=== PATIENT | female | born 1940 | race African-American/Black ===

== ENCOUNTER 2017-04-03 19:19 | Inpatient (IN) | payer MEDICARE, MEDICAID ==
[~2017-04-03] VITALS: Ht 154.9 cm; Wt 55.3 kg
[~2017-04-03 19:19] MED LIST: ACET-2178 PO; AMLO5TAB4 PO; ASPI-1159 PO; COMBIVENT; DIGO125T82 PO; ELOQUIS PO; FOLI-43 PO; LISI-604 PO; METO25TA6 PO; OMEP20CA10 PO; TRAM50TA3 PO
[2017-04-03] MEDS ORDERED: SODIUM CHLORIDE 0.9% 500 ML IV ONE (19:45)
[2017-04-03 20:10] LABS: BASOPHILS % 1.1 % (0.0-2.0); EOSINOPHILS % 1.8 % (0.0-5.0); HEMATOCRIT. 40.3 % (36.0-48.0); HEMOGLOBIN. 13.7 g/dL (12.0-16.0); LYMPHOCYTES % 24.5 % (20.0-50.0); MEAN CORPUSCULAR HEMOGLOBIN 33.3 pg (28.0-32.0); MEAN CORPUSCULAR VOLUME 98.1 fL (81.0-99.0); MEAN PLATELET VOLUME 7.2 fl (7.4-10.4); MONOCYTES % 12.6 % (2.0-8.0); PLATELET 252 x1000/uL (130-400); RED BLOOD CELL COUNT 4.11 mill/uL (4.2-5.4); RED CELL DISTRIBUTION WIDTH 13.5 % (11.6-14.6)
[2017-04-03 20:17] LABS: INR 1.2; PARTIAL THROMBOPLASTIN TIME 30.1 sec (24.0-34.0)
[2017-04-03 20:20] LABS: CARBON DIOXIDE 29 mEq/L (21-32); CHLORIDE 98 mEq/L (98-107)
[2017-04-03 20:27] LABS: TROPONIN I 0.18 ng/mL (0.00-0.04)
[2017-04-03] MEDS ORDERED: DILTIAZEM HCL 5MG/ML 5ML VIAL IV ONE (21:00)
[2017-04-03] MEDS ORDERED: DIGOXIN 500MCG/2ML AMP IV ONE (21:45)
[2017-04-03] MEDS ORDERED: GUAIFENESIN 200MG/10ML SUGAR FREE UDC PO PRN (22:30)
[2017-04-03] MEDS ORDERED: DIPHENHYDRAMINE 50MG/ML VIAL IV PRN (22:30)
[2017-04-03] MEDS ORDERED: CLONIDINE 0.1MG TABLET PO PRN (22:30)
[2017-04-03] MEDS ORDERED: IPRATROPIUM/ALBUTEROL 0.5-3(2.5)MG/3ML NEB INH PRN (22:30)
[2017-04-03] MEDS ORDERED: ACETAMINOPHEN 325MG TABLET PO PRN (22:30)
[2017-04-03] MEDS ORDERED: DOCUSATE SODIUM 100MG CAPSULE PO PRN (22:30)
[2017-04-03] MEDS ORDERED: ONDANSETRON HCL 4MG/2ML VIAL IV PRN (22:30)
[2017-04-03] MEDS ORDERED: ZOLPIDEM TARTRATE 5MG TABLET PO PRN (22:30)
[2017-04-03] MEDS ORDERED: LORAZEPAM 2MG/ML CPJ IV PRN (22:30)
[2017-04-03] MEDS ORDERED: NA PHOS,M-B/NA PHOS,DI-BA ENEMA 118ML PR PRN (22:30)
[2017-04-03] MEDS ORDERED: MAGNESIUM/ALUMINUM HYDROXIDE/SIMETHICONE 30ML UDC PO PRN (22:30)
[2017-04-04] MEDS: DILTIAZEM HCL 60MG TABLET PO SCH ×4 (01:22→17:26)
[2017-04-04] MEDS: TRAMADOL 50MG TABLET PO PRN ×2 (06:05→21:15)
[2017-04-04] MEDS: APIXABAN 2.5 MG TABLET PO SCH ×2 (06:05→17:25)
[2017-04-04 07:02] LABS: CREATINE KINASE MB FRACTION 1.6 ng/mL (0.5-3.6); TROPONIN I 0.15 ng/mL (0.00-0.04)
[2017-04-04 07:45] LABS: CLARITY URINE CLEAR (CLEAR); COLOR URINE YELLOW (YELLOW); KETONES URINE NEGATIVE (NEGATIVE); LEUKOCYTE ESTERASE URINE 1+ (NEGATIVE); NITRITE URINE NEGATIVE (NEGATIVE); OCCULT BLOOD URINE NEGATIVE (NEGATIVE); PROTEIN URINE NEGATIVE (NEGATIVE); SPECIFIC GRAVITY URINE 1.015 (1.005-1.030); UROBILINOGEN URINE 0.2 E.U./dL (0.2-1.0)
[2017-04-04 08:48] LABS: *AMPHETAMINES SCREEN URINE NEGATIVE (NEGATIVE); *BARBITURATES SCREEN URINE NEGATIVE (NEGATIVE); *BENZODIAZEPINES SCREEN URINE NEGATIVE (NEGATIVE); *COCAINE SCREEN URINE NEGATIVE (NEGATIVE); CANNABINOID URINE SCREEN NEGATIVE (NEGATIVE); METHADONE URINE SCREEN NEGATIVE (NEGATIVE); OPIATES URINE SCREEN NEGATIVE (NEGATIVE); PHENCYCLIDINE URINE SCREEN NEGATIVE (NEGATIVE)
[2017-04-04] MEDS: LISINOPRIL 20MG TABLET PO SCH ×2 (09:19→21:09)
[2017-04-04] MEDS: ASPIRIN 325MG EC TABLET PO SCH (09:19)
[2017-04-04] MEDS: PANTOPRAZOLE SODIUM 40 MG/VIAL IV SCH (09:19)
[2017-04-04] MEDS: ZINC SULFATE 220 MG ( 50 ) CAPSULE PO SCH (09:19)
[2017-04-04] MEDS ORDERED: MAGNESIUM 2 G PREMIX 50 ML IV SCH (14:00)
[2017-04-04 14:44] LABS: CREATINE KINASE MB FRACTION 1.7 ng/mL (0.5-3.6); TROPONIN I 0.15 ng/mL (0.00-0.04)
[2017-04-04] MEDS ORDERED: DIGOXIN 125MCG TABLET PO SCH (18:00)
[2017-04-05] MEDS: DILTIAZEM HCL 60MG TABLET PO SCH ×2 (00:38→06:18)
[2017-04-05] MEDS: APIXABAN 2.5 MG TABLET PO SCH ×2 (06:18→17:36)
[2017-04-05 07:48] LABS: EOSINOPHILS % 1.7 % (0.0-5.0); HEMATOCRIT. 36.2 % (36.0-48.0); HEMOGLOBIN. 12.5 g/dL (12.0-16.0); LYMPHOCYTES % 27.3 % (20.0-50.0); MEAN CORPUSCULAR HEMOGLOBIN 33.9 pg (28.0-32.0); MEAN CORPUSCULAR VOLUME 98.7 fL (81.0-99.0); MEAN PLATELET VOLUME 7.6 fl (7.4-10.4); MONOCYTES % 12.3 % (2.0-8.0); NEUTROPHILS % 57.7 % (40.0-76.0); PLATELET 220 x1000/uL (130-400); RED BLOOD CELL COUNT 3.67 mill/uL (4.2-5.4); RED CELL DISTRIBUTION WIDTH 13.3 % (11.6-14.6)
[2017-04-05 08:18] LABS: CARBON DIOXIDE 28 mEq/L (21-32); CHLORIDE 97 mEq/L (98-107); HDL CHOLESTEROL 46 mg/dL (40-59); LDL CHOLESTEROL 73 mg/dL (5-100); T4 FREE 2.14 ng/dL (0.76-1.46); TROPONIN I 0.14 ng/mL (0.00-0.04)
[2017-04-05] MEDS: ZINC SULFATE 220 MG ( 50 ) CAPSULE PO SCH (08:33)
[2017-04-05] MEDS: ASPIRIN 325MG EC TABLET PO SCH (08:34)
[2017-04-05] MEDS: LISINOPRIL 20MG TABLET PO SCH ×2 (08:34→22:07)
[2017-04-05] MEDS: PANTOPRAZOLE SODIUM 40 MG/VIAL IV SCH (08:34)
[2017-04-05] MEDS ORDERED: DOCUSATE SODIUM 250MG CAPSULE PO PRN (11:30)
[2017-04-05] MEDS ORDERED: MAGNESIUM 1 G PREMIX 100 ML IV NR (14:00)
[2017-04-05] MEDS ORDERED: DILTIAZEM HCL 60MG TABLET PO SCH (14:00)
[2017-04-05] MEDS: TRAMADOL 50MG TABLET PO PRN (17:37)
[2017-04-06 06:28] LABS: CARBON DIOXIDE 31 mEq/L (21-32); CHLORIDE 98 mEq/L (98-107)
[2017-04-06] MEDS: APIXABAN 2.5 MG TABLET PO SCH ×2 (06:46→17:03)
[2017-04-06 07:05] LABS: BASOPHILS % 0.8 % (0.0-2.0); HEMOGLOBIN. 12.1 g/dL (12.0-16.0); LYMPHOCYTES % 25.7 % (20.0-50.0); MEAN CORPUSCULAR HEMOGLOBIN 33.2 pg (28.0-32.0); MEAN PLATELET VOLUME 7.8 fl (7.4-10.4); MONOCYTES % 11.9 % (2.0-8.0); NEUTROPHILS % 59.6 % (40.0-76.0); PLATELET 221 x1000/uL (130-400); RED BLOOD CELL COUNT 3.64 mill/uL (4.2-5.4); RED CELL DISTRIBUTION WIDTH 13.3 % (11.6-14.6)
[2017-04-06] MEDS: LISINOPRIL 20MG TABLET PO SCH ×2 (07:39→22:19)
[2017-04-06] MEDS: ZINC SULFATE 220 MG ( 50 ) CAPSULE PO SCH (08:40)
[2017-04-06] MEDS: FAMOTIDINE 20MG/2ML VIAL IV SCH (08:40)
[2017-04-06] MEDS ORDERED: ASPIRIN 325MG EC TABLET PO SCH (09:00)
[2017-04-06] MEDS ORDERED: HYDRALAZINE 20MG/ML VIAL IV PRN (11:30)
[2017-04-06 14:25] LABS: CLARITY URINE CLEAR (CLEAR); COLOR URINE YELLOW (YELLOW); KETONES URINE NEGATIVE (NEGATIVE); LEUKOCYTE ESTERASE URINE TRACE (NEGATIVE); NITRITE URINE NEGATIVE (NEGATIVE); OCCULT BLOOD URINE NEGATIVE (NEGATIVE); PROTEIN URINE NEGATIVE (NEGATIVE); SPECIFIC GRAVITY URINE 1.008 (1.005-1.030); UROBILINOGEN URINE 0.2 E.U./dL (0.2-1.0)
[2017-04-06] MEDS ORDERED: MAGNESIUM 1 G PREMIX 100 ML IV NR ×2 (18:00→20:00)
[2017-04-06] MEDS: HYDRALAZINE HCL 25MG TABLET PO SCH (21:00)
[2017-04-06] MEDS: TRAMADOL 50MG TABLET PO PRN (22:30)
[2017-04-06] MEDS: NITROGLYCERIN 0.4MG TABLET SL SL PRN (23:52)
[2017-04-07] MEDS: NITROGLYCERIN 0.4MG TABLET SL SL PRN (00:02)
[2017-04-07] MEDS: APIXABAN 2.5 MG TABLET PO SCH (07:20)
[2017-04-07 07:33] LABS: CARBON DIOXIDE 31 mEq/L (21-32); CHLORIDE 98 mEq/L (98-107)
[2017-04-07] MEDS ORDERED: ASPIRIN 81MG TABLET PO SCH (07:54)
[2017-04-07] MEDS: LISINOPRIL 20MG TABLET PO SCH (08:41)
[2017-04-07] MEDS: FAMOTIDINE 20MG/2ML VIAL IV SCH (08:41)
[2017-04-07] MEDS: ZINC SULFATE 220 MG ( 50 ) CAPSULE PO SCH (08:41)
[2017-04-07] MEDS: HYDRALAZINE HCL 25MG TABLET PO SCH (08:42)
[2017-04-07] MEDS ORDERED: POTASSIUM CHLORIDE 20MEQ TABLET SR PO SCH (11:30)
[2017-04-07] MEDS ORDERED: MAGNESIUM OXIDE 400MG TABLET PO SCH (11:30)
[2017-04-07 13:35] VITALS: BP 130/81
== END 2017-04-07 14:55 | disposition home health service (06) | DRG 190 ==
LOC: ER 19:19 → 6WST 22:04 → EDBEDREQ 22:07 → EDBEDREQTM 22:07 → ENRESERV 23:03
PROVIDERS: ADMIT Internal Medicine; ATTEND Internal Medicine
DX: I21.4 Non-ST elevation (NSTEMI) myocardial infarction (principal); I47.2 Ventricular tachycardia; E44.0 Moderate protein-calorie malnutrition; I48.91 Unspecified atrial fibrillation; E87.1 Hypo-osmolality and hyponatremia; J44.9 Chronic obstructive pulmonary disease, unspecified; I11.9 Hypertensive heart disease without heart failure; I69.351 Hemiplegia and hemiparesis following cerebral infarction affecting right dominant side; I65.29 Occlusion and stenosis of unspecified carotid artery; E78.5 Hyperlipidemia, unspecified; I34.0 Nonrheumatic mitral (valve) insufficiency; K21.9 Gastro-esophageal reflux disease without esophagitis; F10.10 Alcohol abuse, uncomplicated; K59.00 Constipation, unspecified; F17.210 Nicotine dependence, cigarettes, uncomplicated; Z79.01 Long term (current) use of anticoagulants; Z88.2 Allergy status to sulfonamides; Z88.0 Allergy status to penicillin; I69.320 Aphasia following cerebral infarction; Z79.82 Long term (current) use of aspirin; Z79.899 Other long term (current) drug therapy; Z68.23 Body mass index [BMI] 23.0-23.9, adult
CPT/HCPCS: 36415; 70450; 70551; 71010; 80048; 80053; 80061; 80162; 80305; 81001; 82550; 82553; 83735; 83880; 84439; 84443; 84484; 85025; 85610; 85730; 87086; 93005; 93970; 96361; 96374; 96375; 97116; 97162; 97166; 99291; C1893; C9113; G0482; J1160; J3475; J3490; J7040; J7050

== ENCOUNTER 2018-09-22 15:55 | Inpatient (IN) | payer MEDICARE, MEDICAID ==
[~2018-09-22] VITALS: Ht 162.6 cm; Wt 57.3 kg
[~2018-09-22 15:55] MED LIST changes: -ACET-2178 PO; -AMLO5TAB4 PO; +APIX2.5T PO; -COMBIVENT; -DIGO125T82 PO; -ELOQUIS PO; -FOLI-43 PO
[2018-09-22] MEDS ORDERED: SODIUM CHLORIDE 0.9% 1,000 ML IV ONE (16:22)
[2018-09-22 18:05] LABS: CHLORIDE 104 mEq/L (98-107)
[2018-09-22 18:07] LABS: BASOPHILS % 1.1 % (0.0-2.0); EOSINOPHILS % 1.3 % (0.0-5.0); HEMATOCRIT. 36.6 % (36.0-48.0); HEMOGLOBIN. 12.2 g/dL (12.0-16.0); LYMPHOCYTES % 15.7 % (20.0-50.0); MEAN CORPUSCULAR HEMOGLOBIN 32.9 pg (28.0-32.0); MEAN CORPUSCULAR VOLUME 98.5 fL (81.0-99.0); MONOCYTES % 9.4 % (2.0-8.0); NEUTROPHILS % 72.5 % (40.0-76.0); PLATELET 335 x1000/uL (130-400); RED BLOOD CELL COUNT 3.72 mill/uL (4.2-5.4); RED CELL DISTRIBUTION WIDTH 14.8 % (11.6-14.6)
[2018-09-22] MEDS ORDERED: ASPIRIN 325MG EC TABLET PO ONE (18:30)
[2018-09-22] MEDS ORDERED: IPRATROPIUM/ALBUTEROL 0.5-3(2.5)MG/3ML NEB INH PRN (19:15)
[2018-09-22] MEDS ORDERED: ONDANSETRON HCL 4MG/2ML INJ IV PRN (19:15)
[2018-09-22] MEDS ORDERED: NA PHOS,M-B/NA PHOS,DI-BA ENEMA 118ML PR PRN (19:15)
[2018-09-22] MEDS ORDERED: NITROGLYCERIN 0.4MG TABLET SL SL PRN (19:15)
[2018-09-22] MEDS ORDERED: MAGNESIUM/ALUMINUM HYDROXIDE/SIMETHICONE 30ML UDC PO PRN (19:15)
[2018-09-22] MEDS ORDERED: DOCUSATE SODIUM 100MG CAPSULE PO PRN (19:15)
[2018-09-22] MEDS ORDERED: ZOLPIDEM TARTRATE 5MG TABLET PO PRN (19:15)
[2018-09-22] MEDS ORDERED: LORAZEPAM 1MG TABLET PO PRN (19:15)
[2018-09-22] MEDS ORDERED: ACETAMINOPHEN 325MG TABLET PO PRN (19:15)
[2018-09-22] MEDS ORDERED: TRAMADOL 50MG TABLET PO PRN (19:15)
[2018-09-22 20:37] LABS: CLARITY URINE CLEAR (CLEAR); COLOR URINE YELLOW (YELLOW); KETONES URINE NEGATIVE (NEGATIVE); LEUKOCYTE ESTERASE URINE NEGATIVE (NEGATIVE); NITRITE URINE NEGATIVE (NEGATIVE); OCCULT BLOOD URINE NEGATIVE (NEGATIVE); PH URINE 6.5 (4.5-8.0); PROTEIN URINE NEGATIVE (NEGATIVE); SPECIFIC GRAVITY URINE 1.009 (1.005-1.030); UROBILINOGEN URINE 0.2 E.U./dL (0.2-1.0)
[2018-09-22 21:06] LABS: METHADONE URINE SCREEN NEGATIVE (NEGATIVE); OPIATES URINE SCREEN NEGATIVE (NEGATIVE); PHENCYCLIDINE URINE SCREEN NEGATIVE (NEGATIVE)
[2018-09-22 21:07] LABS: *AMPHETAMINES SCREEN URINE NEGATIVE (NEGATIVE); *BARBITURATES SCREEN URINE NEGATIVE (NEGATIVE); *BENZODIAZEPINES SCREEN URINE NEGATIVE (NEGATIVE); *COCAINE SCREEN URINE NEGATIVE (NEGATIVE); CANNABINOID URINE SCREEN NEGATIVE (NEGATIVE)
[2018-09-22 22:43] VITALS: BP 150/74
[2018-09-22 22:59] VITALS: BP 150/74
[2018-09-23] VITALS (8 sets, daily range): BP systolic 115–174; BP diastolic 75–98
[2018-09-23 00:30] LABS: CREATINE KINASE MB FRACTION 1.9 ng/mL (0.5-3.6)
[2018-09-23] MEDS: METOPROLOL TARTRATE 25MG TABLET PO SCH ×3 (01:01→21:06)
[2018-09-23] MEDS: CLONIDINE 0.1MG TABLET PO PRN ×2 (01:01→13:38)
[2018-09-23] MEDS ORDERED: MVI, ADULT NO.1 10 ML, FOLIC ACID 1 MG, THIAMINE HCL 100 MG in SODIUM CHLORIDE 0.9% 1,0... IV NR ×4 (02:00)
[2018-09-23] MEDS: APIXABAN 2.5 MG TABLET PO SCH ×2 (05:26→17:44)
[2018-09-23] MEDS: GUAIFENESIN 200MG/10ML SUGAR FREE UDC PO PRN (08:39)
[2018-09-23] MEDS: FAMOTIDINE 20MG TABLET PO SCH (08:44)
[2018-09-23] MEDS: ASPIRIN 325MG EC TABLET PO SCH (08:45)
[2018-09-23 09:19] LABS: CREATINE KINASE MB FRACTION 1.5 ng/mL (0.5-3.6)
[2018-09-23 10:26] LABS: CHLORIDE 106 mEq/L (98-107)
[2018-09-24] VITALS (7 sets, daily range): BP systolic 118–173; BP diastolic 80–98
[2018-09-24] MEDS: GUAIFENESIN 200MG/10ML SUGAR FREE UDC PO PRN ×2 (02:12→20:18)
[2018-09-24] MEDS: CLONIDINE 0.1MG TABLET PO PRN (05:29)
[2018-09-24] MEDS: APIXABAN 2.5 MG TABLET PO SCH ×2 (05:29→17:22)
[2018-09-24 07:46] LABS: BASOPHILS % 1.2 % (0.0-2.0); EOSINOPHILS % 2.6 % (0.0-5.0); HEMATOCRIT. 33.7 % (36.0-48.0); HEMOGLOBIN. 11.3 g/dL (12.0-16.0); LYMPHOCYTES % 17.2 % (20.0-50.0); MEAN CORPUSCULAR HEMOGLOBIN 32.9 pg (28.0-32.0); MEAN CORPUSCULAR VOLUME 97.9 fL (81.0-99.0); MEAN PLATELET VOLUME 8.5 fl (7.4-10.4); MONOCYTES % 8.3 % (2.0-8.0); NEUTROPHILS % 70.7 % (40.0-76.0); PLATELET 280 x1000/uL (130-400); RED BLOOD CELL COUNT 3.44 mill/uL (4.2-5.4); RED CELL DISTRIBUTION WIDTH 15.2 % (11.6-14.6)
[2018-09-24 08:06] LABS: CHLORIDE 103 mEq/L (98-107)
[2018-09-24 08:20] LABS: CREATINE KINASE 91 IU/L (26-192)
[2018-09-24 08:21] LABS: CREATINE KINASE MB FRACTION 2.4 ng/mL (0.5-3.6); HDL CHOLESTEROL 48 mg/dL (40-59); LDL CHOLESTEROL 92 mg/dL (5-100)
[2018-09-24] MEDS: ASPIRIN 325MG EC TABLET PO SCH (09:00)
[2018-09-24] MEDS: METOPROLOL TARTRATE 25MG TABLET PO SCH ×2 (09:00→20:18)
[2018-09-24] MEDS: FAMOTIDINE 20MG TABLET PO SCH (09:00)
[2018-09-24] MEDS ORDERED: MAGNESIUM 4 G PREMIX 100 ML IV NR (14:30)
[2018-09-25] MEDS: CLONIDINE 0.1MG TABLET PO PRN (00:07)
[2018-09-25 00:41] VITALS: BP 169/73
[2018-09-25 04:00] VITALS: BP 161/95
[2018-09-25 05:00] VITALS: BP 158/65
[2018-09-25] MEDS: APIXABAN 2.5 MG TABLET PO SCH (06:16)
[2018-09-25 07:24] LABS: BASOPHILS % 1.5 % (0.0-2.0); EOSINOPHILS % 3.1 % (0.0-5.0); HEMATOCRIT. 34.1 % (36.0-48.0); HEMOGLOBIN. 11.4 g/dL (12.0-16.0); LYMPHOCYTES % 22.3 % (20.0-50.0); MEAN CORPUSCULAR HEMOGLOBIN 32.9 pg (28.0-32.0); MEAN CORPUSCULAR VOLUME 98.6 fL (81.0-99.0); MEAN PLATELET VOLUME 8.9 fl (7.4-10.4); MONOCYTES % 9.5 % (2.0-8.0); NEUTROPHILS % 63.6 % (40.0-76.0); PLATELET 261 x1000/uL (130-400); RED BLOOD CELL COUNT 3.46 mill/uL (4.2-5.4)
[2018-09-25 07:53] LABS: CHLORIDE 100 mEq/L (98-107)
[2018-09-25 08:00] VITALS: BP 145/95
[2018-09-25] MEDS: FAMOTIDINE 20MG TABLET PO SCH (08:40)
[2018-09-25] MEDS: METOPROLOL TARTRATE 25MG TABLET PO SCH (08:40)
[2018-09-25] MEDS: ASPIRIN 325MG EC TABLET PO SCH (08:40)
[2018-09-25] MEDS: GUAIFENESIN 200MG/10ML SUGAR FREE UDC PO PRN (08:40)
[2018-09-25 12:00] VITALS: BP 116/65
[2018-09-25 16:00] VITALS: BP 111/56
== END 2018-09-25 18:00 | disposition home health service (06) | DRG 190 ==
LOC: ER 15:55 → 6WST 18:32 → ENRESERV 19:41 → 6WST 22:10
PROVIDERS: ADMIT Internal Medicine; ATTEND Internal Medicine
DX: I21.4 Non-ST elevation (NSTEMI) myocardial infarction (principal); E44.0 Moderate protein-calorie malnutrition; E83.51 Hypocalcemia; E83.42 Hypomagnesemia; I48.2 Chronic atrial fibrillation; I50.9 Heart failure, unspecified; I11.0 Hypertensive heart disease with heart failure; I65.29 Occlusion and stenosis of unspecified carotid artery; F10.10 Alcohol abuse, uncomplicated; I24.9 Acute ischemic heart disease, unspecified; J98.11 Atelectasis; F17.210 Nicotine dependence, cigarettes, uncomplicated; J44.9 Chronic obstructive pulmonary disease, unspecified; K57.90 Diverticulosis of intestine, part unspecified, without perforation or abscess without bleeding; R74.8 Abnormal levels of other serum enzymes; Y90.2 Blood alcohol level of 40-59 mg/100 ml; K21.9 Gastro-esophageal reflux disease without esophagitis; Z86.73 Personal history of transient ischemic attack (TIA), and cerebral infarction without residual deficits; Z68.21 Body mass index [BMI] 21.0-21.9, adult; Z88.0 Allergy status to penicillin; Z88.2 Allergy status to sulfonamides; Z71.6 Tobacco abuse counseling; Z71.41 Alcohol abuse counseling and surveillance of alcoholic; Z79.84 Long term (current) use of oral hypoglycemic drugs; Z79.899 Other long term (current) drug therapy
CPT/HCPCS: 36415; 71045; 80061; 80305; 82550; 82553; 82962; 83036; 83605; 83735; 83880; 84443; 84484; 87804; 93005; 93970; 96360; 97116; 97162; 97166; 97530; 99291; G0482; J3411; J3475; J3490; J7030; J7050

== ENCOUNTER 2018-12-21 00:51 | Inpatient (IN) | payer MEDICARE, MEDICAID ==
[~2018-12-21] VITALS: Ht 152.4 cm; Wt 55.8 kg
[~2018-12-21 00:51] MED LIST changes: -TRAM50TA3 PO
[2018-12-21] MEDS ORDERED: MORPHINE SULFATE 4 MG/ML CPJ (NOT FOR IM USE) IV STA (01:34)
[2018-12-21] MEDS ORDERED: ONDANSETRON HCL 4MG/2ML INJ IV STA (01:34)
[2018-12-21 02:13] LABS: BASOPHILS % 0.5 % (0.0-2.0); EOSINOPHILS % 0.4 % (0.0-5.0); HEMATOCRIT. 40.4 % (36.0-48.0); HEMOGLOBIN. 13.6 g/dL (12.0-16.0); LYMPHOCYTES % 7.1 % (20.0-50.0); MEAN CORPUSCULAR HEMOGLOBIN 31.4 pg (28.0-32.0); MEAN CORPUSCULAR VOLUME 93.5 fL (81.0-99.0); MEAN PLATELET VOLUME 7.4 fl (7.4-10.4); MONOCYTES % 9.1 % (2.0-8.0); NEUTROPHILS % 82.9 % (40.0-76.0); PLATELET 361 x1000/uL (130-400); RED BLOOD CELL COUNT 4.32 mill/uL (4.2-5.4); RED CELL DISTRIBUTION WIDTH 14.6 % (11.6-14.6)
[2018-12-21 02:14] LABS: CHLORIDE 102 mEq/L (98-107)
[2018-12-21 02:22] LABS: INR 1.2; PROTHROMBIN TIME 11.8 sec (9.1-11.1)
[2018-12-21 03:31] LABS: CLARITY URINE CLEAR (CLEAR); COLOR URINE YELLOW (YELLOW); KETONES URINE NEGATIVE (NEGATIVE); LEUKOCYTE ESTERASE URINE NEGATIVE (NEGATIVE); NITRITE URINE NEGATIVE (NEGATIVE); OCCULT BLOOD URINE NEGATIVE (NEGATIVE); PROTEIN URINE NEGATIVE (NEGATIVE); SPECIFIC GRAVITY URINE 1.027 (1.005-1.030)
[2018-12-21] MEDS ORDERED: IOHEXOL-300 100 ML BOTTLE ONE (04:03)
[2018-12-21] MEDS ORDERED: LEVOFLOXACIN 750MG PREMIX 150 ML IV ONE (04:15)
[2018-12-21] MEDS ORDERED: METRONIDAZOLE 500 MG PREMIX 100 ML IV ONE (04:15)
[2018-12-21 06:30] VITALS: BP 130/63
[2018-12-21] MEDS ORDERED: ACETAMINOPHEN 325MG TABLET PO PRN (06:30)
[2018-12-21] MEDS ORDERED: IPRATROPIUM/ALBUTEROL 0.5-3(2.5)MG/3ML NEB INH PRN (06:30)
[2018-12-21] MEDS ORDERED: LORAZEPAM 2MG/ML CPJ IV PRN (06:30)
[2018-12-21] MEDS ORDERED: GUAIFENESIN 200MG/10ML SUGAR FREE UDC PO PRN (06:30)
[2018-12-21] MEDS ORDERED: HYDRALAZINE 20MG/ML VIAL IV PRN (06:30)
[2018-12-21] MEDS ORDERED: DIPHENHYDRAMINE 50MG/ML VIAL IV PRN (06:30)
[2018-12-21] MEDS ORDERED: MAGNESIUM/ALUMINUM HYDROXIDE/SIMETHICONE 30ML UDC PO PRN (06:30)
[2018-12-21] MEDS ORDERED: CLONIDINE 0.1MG TABLET PO PRN (06:30)
[2018-12-21] MEDS ORDERED: ONDANSETRON HCL 4MG/2ML INJ IV PRN (06:30)
[2018-12-21] MEDS ORDERED: HYDROMORPHONE HCL/PF 2MG/ML CPJ IV PRN (06:30)
[2018-12-21] MEDS ORDERED: ENOXAPARIN 40MG/0.4ML SYR SUBCUT SCH (06:30)
[2018-12-21] MEDS ORDERED: DOCUSATE SODIUM 100MG CAPSULE PO PRN (06:30)
[2018-12-21 08:00] VITALS: BP 117/65
[2018-12-21 08:49] VITALS: BP 117/65
[2018-12-21] MEDS ORDERED: ASPIRIN 81MG EC TABLET PO SCH (09:00)
[2018-12-21] MEDS: HYDROCODONE/ACETAMINOPHEN 10/325MG TABLET PO PRN ×2 (09:44→21:49)
[2018-12-21] MEDS: APIXABAN 2.5 MG TABLET PO SCH ×2 (11:15→18:04)
[2018-12-21 12:51] VITALS: BP 113/65
[2018-12-21] MEDS: METRONIDAZOLE 500 MG PREMIX 100 ML IV SCH ×2 (13:31→21:38)
[2018-12-21] MEDS: SODIUM CHLORIDE 0.45% 1,000 ML IV SCH ×2 (13:31→21:38)
[2018-12-21] MEDS: SODIUM CHLORIDE 0.9% INJ 3ML FLUSH IVF SCH ×2 (13:32→21:38)
[2018-12-21] MEDS ORDERED: ALBUMIN HUMAN 25GM/500ML (5%) IV PRN (16:00)
[2018-12-21 16:25] LABS: CREATINE KINASE MB FRACTION 1.2 ng/mL (0.5-3.6)
[2018-12-21 16:35] VITALS: BP 107/52
[2018-12-21] MEDS: PANTOPRAZOLE SODIUM 40 MG/VIAL IV SCH (18:04)
[2018-12-21] MEDS ORDERED: IPRA4AER INH (18:44)
[2018-12-21 20:00] VITALS: BP 124/71
[2018-12-21 23:27] LABS: CREATINE KINASE MB FRACTION 1.6 ng/mL (0.5-3.6)
[2018-12-22] VITALS: BP 114/70
[2018-12-22 04:00] VITALS: BP 133/63
[2018-12-22] MEDS: SODIUM CHLORIDE 0.9% INJ 3ML FLUSH IVF SCH ×3 (05:22→21:43)
[2018-12-22] MEDS: METRONIDAZOLE 500 MG PREMIX 100 ML IV SCH ×3 (05:22→21:43)
[2018-12-22] MEDS: LEVOFLOXACIN 250MG PREMIX 50 ML IV SCH (05:22)
[2018-12-22 07:35] VITALS: BP 123/82
[2018-12-22] MEDS: APIXABAN 2.5 MG TABLET PO SCH ×2 (09:00→18:24)
[2018-12-22] MEDS: PANTOPRAZOLE SODIUM 40 MG/VIAL IV SCH (09:00)
[2018-12-22] MEDS: SODIUM CHLORIDE 0.45% 1,000 ML IV SCH ×2 (09:00→21:43)
[2018-12-22 09:01] LABS: EOSINOPHILS % 2.6 % (0.0-5.0); HEMATOCRIT. 35.1 % (36.0-48.0); HEMOGLOBIN. 11.7 g/dL (12.0-16.0); LYMPHOCYTES % 23.1 % (20.0-50.0); MEAN CORPUSCULAR HEMOGLOBIN 31.4 pg (28.0-32.0); MEAN CORPUSCULAR VOLUME 94.4 fL (81.0-99.0); MEAN PLATELET VOLUME 7.9 fl (7.4-10.4); MONOCYTES % 11.1 % (2.0-8.0); NEUTROPHILS % 62.2 % (40.0-76.0); PLATELET 294 x1000/uL (130-400); RED BLOOD CELL COUNT 3.72 mill/uL (4.2-5.4); RED CELL DISTRIBUTION WIDTH 14.8 % (11.6-14.6)
[2018-12-22 09:02] LABS: CHLORIDE 102 mEq/L (98-107)
[2018-12-22 09:06] LABS: AMYLASE 129 IU/L (25-115)
[2018-12-22 12:00] VITALS: BP 129/67
[2018-12-22 16:00] VITALS: BP 119/64
[2018-12-22 20:00] VITALS: BP 122/59
[2018-12-22] MEDS ORDERED: SORBITOL 70% SOLN 30ML PO ONE (22:00)
[2018-12-23] VITALS: BP 125/59
[2018-12-23 04:00] VITALS: BP 156/80
[2018-12-23] MEDS: METRONIDAZOLE 500 MG PREMIX 100 ML IV SCH (05:23)
[2018-12-23] MEDS: SODIUM CHLORIDE 0.9% INJ 3ML FLUSH IVF SCH ×3 (05:23→21:39)
[2018-12-23] MEDS: LEVOFLOXACIN 250MG PREMIX 50 ML IV SCH (05:23)
[2018-12-23 06:32] LABS: BASOPHILS % 1.1 % (0.0-2.0); CHLORIDE 104 mEq/L (98-107); EOSINOPHILS % 1.9 % (0.0-5.0); HEMATOCRIT. 36.4 % (36.0-48.0); HEMOGLOBIN. 11.9 g/dL (12.0-16.0); LYMPHOCYTES % 17.5 % (20.0-50.0); MEAN CORPUSCULAR HEMOGLOBIN 30.9 pg (28.0-32.0); MEAN CORPUSCULAR VOLUME 94.2 fL (81.0-99.0); MEAN PLATELET VOLUME 8.6 fl (7.4-10.4); MONOCYTES % 11.8 % (2.0-8.0); NEUTROPHILS % 67.7 % (40.0-76.0); PLATELET 257 x1000/uL (130-400); RED BLOOD CELL COUNT 3.86 mill/uL (4.2-5.4); RED CELL DISTRIBUTION WIDTH 14.9 % (11.6-14.6)
[2018-12-23] MEDS: PANTOPRAZOLE SODIUM 40 MG/VIAL IV SCH (09:00)
[2018-12-23] MEDS: APIXABAN 2.5 MG TABLET PO SCH ×2 (09:24→17:37)
[2018-12-23] MEDS ORDERED: SORBITOL 70% SOLN 30ML PO ONE (10:00)
[2018-12-23] MEDS: SODIUM CHLORIDE 0.45% 1,000 ML IV SCH (10:33)
[2018-12-23] MEDS ORDERED: NA PHOS,M-B/NA PHOS,DI-BA ENEMA 118ML PR ONE (12:00)
[2018-12-23] MEDS ORDERED: LEVOFLOXACIN 500MG TABLET PO ONE (13:15)
[2018-12-23] MEDS: METRONIDAZOLE 500MG TABLET PO SCH ×2 (14:27→21:55)
[2018-12-23 16:00] VITALS: BP 156/89
[2018-12-23 20:00] VITALS: BP 121/41
[2018-12-23 21:20] VITALS: BP 139/93
[2018-12-24] MEDS ORDERED: LEVOFLOXACIN 250MG TABLET PO SCH (11:00)
== END 2018-12-23 22:50 | disposition home or self-care (01) ==
LOC: ER 00:51 → 6WST 01:51 → EDBEDREQ 01:53 → EDBEDREQTM 01:53 → ENRESERV 02:12
PROVIDERS: ADMIT Internal Medicine; ATTEND Internal Medicine
DX: K80.70 Calculus of gallbladder and bile duct without cholecystitis without obstruction (principal); I48.1 Persistent atrial fibrillation; K57.32 Diverticulitis of large intestine without perforation or abscess without bleeding; I11.9 Hypertensive heart disease without heart failure; J44.9 Chronic obstructive pulmonary disease, unspecified; I48.2 Chronic atrial fibrillation; K76.0 Fatty (change of) liver, not elsewhere classified; F17.210 Nicotine dependence, cigarettes, uncomplicated; K21.9 Gastro-esophageal reflux disease without esophagitis; D25.9 Leiomyoma of uterus, unspecified; N20.0 Calculus of kidney; Z79.01 Long term (current) use of anticoagulants; I69.339 Monoplegia of upper limb following cerebral infarction affecting unspecified side; Z79.899 Other long term (current) drug therapy; Z79.82 Long term (current) use of aspirin; Z88.0 Allergy status to penicillin; Z88.2 Allergy status to sulfonamides; Z71.6 Tobacco abuse counseling
CPT/HCPCS: 36415; 71045; 74177; 74181; 82150; 82550; 82553; 83605; 83735; 84484; 93005; 94640; 99285; C1893; C9113; J1956; J2270; J2405; J3490; J7620; Q9967

== ENCOUNTER 2019-01-25 11:58 | Emergency (ER) | payer MEDICARE, MEDICAID ==
[~2019-01-25] VITALS: Ht 154.9 cm; Wt 50.0 kg
[~2019-01-25 11:58] MED LIST changes: +IPRA4AER INH
[2019-01-25] MEDS ORDERED: HYDROCODONE/ACETAMINOPHEN 5/325MG TABLET PO STA (12:29)
[2019-01-25] MEDS ORDERED: IBUPROFEN 600MG TABLET PO STA (12:29)
[2019-01-25 17:55] VITALS: BP 168/70
== END 2019-01-25 17:59 | disposition home or self-care (01) ==
LOC: ER 11:58
DX: M25.512 Pain in left shoulder (principal); I48.91 Unspecified atrial fibrillation; J44.9 Chronic obstructive pulmonary disease, unspecified; I10 Essential (primary) hypertension; Z86.73 Personal history of transient ischemic attack (TIA), and cerebral infarction without residual deficits; F17.210 Nicotine dependence, cigarettes, uncomplicated; Z88.2 Allergy status to sulfonamides; Z79.01 Long term (current) use of anticoagulants; Z88.0 Allergy status to penicillin
CPT/HCPCS: 73030; 99283

== ENCOUNTER 2019-05-01 11:49 | Inpatient (IN) | payer MEDICARE, MEDICAID ==
[~2019-05-01] VITALS: Ht 154.9 cm; Wt 56.7 kg
[~2019-05-01 11:49] MED LIST changes: -ASPI-1159 PO; +ASPI-1393 PO; -OMEP20CA10 PO; +OMEP20CA5 PO
[2019-05-01] MEDS ORDERED: HYDROCODONE/ACETAMINOPHEN 5/325MG TABLET PO ONE (16:00)
[2019-05-01 16:42] LABS: CLARITY URINE CLEAR (CLEAR); COLOR URINE YELLOW (YELLOW); KETONES URINE NEGATIVE (NEGATIVE); LEUKOCYTE ESTERASE URINE TRACE (NEGATIVE); NITRITE URINE NEGATIVE (NEGATIVE); OCCULT BLOOD URINE NEGATIVE (NEGATIVE); PROTEIN URINE NEGATIVE (NEGATIVE); SPECIFIC GRAVITY URINE 1.004 (1.005-1.030); UROBILINOGEN URINE 0.2 E.U./dL (0.2-1.0)
[2019-05-01 16:50] LABS: CHLORIDE 103 mEq/L (98-107)
[2019-05-01 16:52] LABS: *AMPHETAMINES SCREEN URINE NEGATIVE (NEGATIVE); *BARBITURATES SCREEN URINE NEGATIVE (NEGATIVE); *BENZODIAZEPINES SCREEN URINE NEGATIVE (NEGATIVE); *COCAINE SCREEN URINE NEGATIVE (NEGATIVE); CANNABINOID URINE SCREEN NEGATIVE (NEGATIVE); OPIATES URINE SCREEN NEGATIVE (NEGATIVE); PHENCYCLIDINE URINE SCREEN NEGATIVE (NEGATIVE)
[2019-05-01 16:54] LABS: METHADONE URINE SCREEN NEGATIVE (NEGATIVE)
[2019-05-01 16:57] LABS: BASOPHILS % 1.9 % (0.0-2.0); EOSINOPHILS % 2.9 % (0.0-5.0); HEMOGLOBIN. 13.2 g/dL (12.0-16.0); LYMPHOCYTES % 27.8 % (20.0-50.0); MEAN PLATELET VOLUME 8.7 fl (7.4-10.4); MONOCYTES % 11.5 % (2.0-8.0); NEUTROPHILS % 55.9 % (40.0-76.0); PLATELET 250 x1000/uL (130-400); RED BLOOD CELL COUNT 3.98 mill/uL (4.2-5.4); RED CELL DISTRIBUTION WIDTH 15.3 % (11.6-14.6)
[2019-05-01] MEDS ORDERED: NITROGLYCERIN 0.4MG TABLET SL SL PRN (20:00)
[2019-05-01] MEDS ORDERED: IPRATROPIUM/ALBUTEROL 0.5-3(2.5)MG/3ML NEB INH PRN (20:00)
[2019-05-01] MEDS ORDERED: DOCUSATE SODIUM 100MG CAPSULE PO PRN (20:00)
[2019-05-01] MEDS ORDERED: ACETAMINOPHEN 325MG TABLET PO PRN (20:00)
[2019-05-01] MEDS ORDERED: CLONIDINE 0.1MG TABLET PO PRN (20:00)
[2019-05-01] MEDS ORDERED: MAGNESIUM/ALUMINUM HYDROXIDE/SIMETHICONE 30ML UDC PO PRN (20:00)
[2019-05-01] MEDS ORDERED: ONDANSETRON HCL 4MG/2ML INJ IV PRN (20:00)
[2019-05-01] MEDS ORDERED: GUAIFENESIN 200MG/10ML SUGAR FREE UDC PO PRN (20:00)
[2019-05-01] MEDS ORDERED: LORAZEPAM 0.5MG TABLET PO PRN (20:00)
[2019-05-01] MEDS ORDERED: ZOLPIDEM TARTRATE 5MG TABLET PO PRN (20:00)
[2019-05-01] MEDS ORDERED: MORPHINE SULFATE 4 MG/ML CPJ (NOT FOR IM USE) IV ONE (21:15)
[2019-05-01] MEDS ORDERED: ONDANSETRON HCL 4MG/2ML INJ IV ONE (21:15)
[2019-05-01] MEDS ORDERED: ASPIRIN 81MG TABLET PO ONE (21:15)
[2019-05-01] MEDS: KETOROLAC 15MG/ML VIAL IV PRN (21:46)
[2019-05-01 23:45] VITALS: BP 145/91
[2019-05-02 00:03] LABS: CREATINE KINASE MB FRACTION 2.5 ng/mL (0.5-3.6)
[2019-05-02] MEDS: LISINOPRIL 20MG TABLET PO SCH ×3 (01:35→20:26)
[2019-05-02] MEDS: METOPROLOL TARTRATE 25MG TABLET PO SCH ×3 (01:35→20:25)
[2019-05-02 04:00] VITALS: BP 150/103
[2019-05-02] MEDS: SUCRALFATE 1 G/10 ML UDC PO SCH ×4 (06:43→21:00)
[2019-05-02 07:28] LABS: CREATINE KINASE MB FRACTION 2.1 ng/mL (0.5-3.6)
[2019-05-02 08:00] VITALS: BP 130/85
[2019-05-02] MEDS ORDERED: ASPIRIN 81MG EC TABLET PO SCH (09:00)
[2019-05-02] MEDS: FAMOTIDINE 20MG TABLET PO SCH (10:27)
[2019-05-02] MEDS: APIXABAN 2.5 MG TABLET PO SCH ×2 (10:33→20:25)
[2019-05-02] MEDS ORDERED: CLONIDINE 0.2MG TABLET PO PRN (11:00)
[2019-05-02] MEDS ORDERED: CLONIDINE 0.1MG TABLET PO PRN (11:15)
[2019-05-02 12:00] VITALS: BP 118/72
[2019-05-02] MEDS: KETOROLAC 15MG/ML VIAL IV PRN (14:06)
[2019-05-02 16:00] VITALS: BP 147/85
[2019-05-02 20:00] VITALS: BP 122/80
[2019-05-02] MEDS: TRAMADOL 50MG TABLET PO PRN (20:24)
[2019-05-03] VITALS: BP 148/96
[2019-05-03 04:00] VITALS: BP 147/94
[2019-05-03] MEDS: SUCRALFATE 1 G/10 ML UDC PO SCH ×4 (06:39→20:57)
[2019-05-03 07:36] LABS: CHLORIDE 103 mEq/L (98-107)
[2019-05-03 07:47] LABS: BASOPHILS % 0.6 % (0.0-2.0); EOSINOPHILS % 2.8 % (0.0-5.0); HEMATOCRIT. 35.5 % (36.0-48.0); LYMPHOCYTES % 27.8 % (20.0-50.0); MEAN CORPUSCULAR HEMOGLOBIN 32.9 pg (28.0-32.0); MEAN CORPUSCULAR VOLUME 97.5 fL (81.0-99.0); MONOCYTES % 11.4 % (2.0-8.0); NEUTROPHILS % 57.4 % (40.0-76.0); PLATELET 232 x1000/uL (130-400); RED BLOOD CELL COUNT 3.64 mill/uL (4.2-5.4); RED CELL DISTRIBUTION WIDTH 15.4 % (11.6-14.6)
[2019-05-03 08:00] VITALS: BP 148/69
[2019-05-03] MEDS: APIXABAN 2.5 MG TABLET PO SCH ×2 (09:27→20:57)
[2019-05-03] MEDS: FAMOTIDINE 20MG TABLET PO SCH (09:27)
[2019-05-03] MEDS: LISINOPRIL 20MG TABLET PO SCH ×2 (09:27→20:57)
[2019-05-03] MEDS: METOPROLOL TARTRATE 25MG TABLET PO SCH ×2 (09:28→20:57)
[2019-05-03] MEDS: TRAMADOL 50MG TABLET PO PRN (09:49)
[2019-05-03 12:18] VITALS: BP 143/82
[2019-05-03] MEDS: AMLODIPINE 2.5MG TABLET PO SCH (16:29)
[2019-05-03 20:00] VITALS: BP 128/76
[2019-05-04 00:23] VITALS: BP 180/103
[2019-05-04] MEDS: AMLODIPINE 2.5MG TABLET PO SCH ×2 (00:25→09:20)
[2019-05-04 04:00] VITALS: BP 142/83
[2019-05-04 07:45] LABS: CHLORIDE 103 mEq/L (98-107)
[2019-05-04 07:49] LABS: BASOPHILS % 0.8 % (0.0-2.0); EOSINOPHILS % 2.7 % (0.0-5.0); HEMATOCRIT. 34.6 % (36.0-48.0); HEMOGLOBIN. 11.9 g/dL (12.0-16.0); LYMPHOCYTES % 26.4 % (20.0-50.0); MEAN CORPUSCULAR HEMOGLOBIN 33.5 pg (28.0-32.0); MEAN CORPUSCULAR VOLUME 97.5 fL (81.0-99.0); MEAN PLATELET VOLUME 7.5 fl (7.4-10.4); MONOCYTES % 10.1 % (2.0-8.0); PLATELET 228 x1000/uL (130-400); RED BLOOD CELL COUNT 3.55 mill/uL (4.2-5.4); RED CELL DISTRIBUTION WIDTH 15.6 % (11.6-14.6)
[2019-05-04 08:00] VITALS: BP 172/90
[2019-05-04] MEDS: APIXABAN 2.5 MG TABLET PO SCH (09:19)
[2019-05-04] MEDS: FAMOTIDINE 20MG TABLET PO SCH (09:19)
[2019-05-04] MEDS: SUCRALFATE 1 G/10 ML UDC PO SCH ×2 (09:19→11:31)
[2019-05-04] MEDS: LISINOPRIL 20MG TABLET PO SCH (09:21)
[2019-05-04] MEDS: METOPROLOL TARTRATE 25MG TABLET PO SCH (09:21)
[2019-05-04] MEDS ORDERED: MAGNESIUM OXIDE 400MG TABLET PO SCH (10:00)
[2019-05-04] MEDS ORDERED: MAGNESIUM 2 G PREMIX 50 ML IV NR (11:00)
[2019-05-04 12:00] VITALS: BP 137/74
[2019-05-04 13:33] VITALS: BP 137/74
[2019-05-04 16:00] VITALS: BP 124/67
[2019-05-04] MEDS ORDERED: AMLODIPINE 2.5MG TABLET PO SCH (21:00)
== END 2019-05-04 18:14 | disposition home health service (06) | DRG 190 ==
LOC: ER 12:38 → EDBEDREQTM 19:38 → EDBEDREQSVC 19:38 → EDBEDREQ 19:38 → CANRESERV 19:51 → ENRESERV 19:51 → SUPCPDRO 19:52 → EDBEDREQTM 19:57 → EDBEDREQSVC 19:57 → 8WST 19:57 → ENRESERV 20:17
PROVIDERS: ADMIT Internal Medicine; ATTEND Internal Medicine
DX: I21.4 Non-ST elevation (NSTEMI) myocardial infarction (principal); E44.0 Moderate protein-calorie malnutrition; E83.51 Hypocalcemia; M41.9 Scoliosis, unspecified; I65.29 Occlusion and stenosis of unspecified carotid artery; I48.2 Chronic atrial fibrillation; J44.9 Chronic obstructive pulmonary disease, unspecified; F10.10 Alcohol abuse, uncomplicated; M54.5 Low back pain; I34.0 Nonrheumatic mitral (valve) insufficiency; M47.896 Other spondylosis, lumbar region; R26.2 Difficulty in walking, not elsewhere classified; M19.90 Unspecified osteoarthritis, unspecified site; G89.29 Other chronic pain; M48.061 Spinal stenosis, lumbar region without neurogenic claudication; I10 Essential (primary) hypertension; K21.9 Gastro-esophageal reflux disease without esophagitis; Z72.0 Tobacco use; Z79.899 Other long term (current) drug therapy; Z86.73 Personal history of transient ischemic attack (TIA), and cerebral infarction without residual deficits; Z88.2 Allergy status to sulfonamides; Z88.0 Allergy status to penicillin; Z79.82 Long term (current) use of aspirin; Z68.23 Body mass index [BMI] 23.0-23.9, adult; Z71.6 Tobacco abuse counseling
CPT/HCPCS: 36415; 71045; 72070; 72100; 72146; 72148; 80061; 80305; 81003; 82550; 82553; 83036; 83735; 83880; 84443; 84484; 85651; 93005; 93306; 93970; 97162; 97165; 99285; J1885; J2270; J2405; J3475

== ENCOUNTER 2019-10-31 16:09 | Inpatient (IN) | payer MEDICARE, MEDICAID ==
[~2019-10-31] VITALS: Ht 162.6 cm; Wt 74.4 kg
[~2019-10-31 16:09] MED LIST changes: -ASPI-1393 PO; +ASPI-1497 PO; +OMEP20CA14 PO; -OMEP20CA5 PO
[2019-10-31] MEDS ORDERED: IPRATROPIUM BROMIDE (0.02%) 0.5MG/2.5ML NEB HHN STA (16:43)
[2019-10-31] MEDS ORDERED: ALBUTEROL (0.083%) 2.5MG/3ML NEB HHN STA (16:43)
[2019-10-31] MEDS ORDERED: PREDNISONE 20MG TABLET PO STA (16:43)
[2019-10-31 17:10] LABS: BASOPHILS % 0.9 % (0.0-2.0); EOSINOPHILS % 1.4 % (0.0-5.0); HEMATOCRIT. 37.8 % (36.0-48.0); HEMOGLOBIN. 12.6 g/dL (12.0-16.0); LYMPHOCYTES % 19.1 % (20.0-50.0); MEAN CORPUSCULAR VOLUME 92.9 fL (81.0-99.0); MEAN PLATELET VOLUME 7.5 fl (7.4-10.4); MONOCYTES % 10.5 % (2.0-8.0); NEUTROPHILS % 68.1 % (40.0-76.0); PLATELET 258 x1000/uL (130-400); RED BLOOD CELL COUNT 4.07 mill/uL (4.2-5.4); RED CELL DISTRIBUTION WIDTH 14.9 % (11.6-14.6)
[2019-10-31 17:16] LABS: CHLORIDE 102 mEq/L (98-107)
[2019-10-31 17:17] LABS: INR 1.1; PROTHROMBIN TIME 11.4 sec (9.6-11.0)
[2019-10-31] MEDS ORDERED: AZITHROMYCIN 500 MG in DEXT 5% WATER 250 ML IV NR (18:00)
[2019-10-31] MEDS: CEFTRIAXONE 1 G PREMIX 50 ML IV NR ×2 (18:41→19:02)
[2019-10-31] MEDS ORDERED: ACETAMINOPHEN 650MG SUPP PR PRN (22:45)
[2019-10-31] MEDS ORDERED: ACETAMINOPHEN 650MG/20.3ML UDC GT PRN (22:45)
[2019-10-31] MEDS ORDERED: ACETAMINOPHEN 325MG TABLET PO PRN (22:45)
[2019-10-31] MEDS ORDERED: CLONIDINE 0.1MG TABLET PO PRN (22:45)
[2019-10-31] MEDS ORDERED: MAGNESIUM/ALUMINUM HYDROXIDE/SIMETHICONE 30ML UDC PO PRN (22:45)
[2019-10-31] MEDS ORDERED: NA PHOS,M-B/NA PHOS,DI-BA ENEMA 118ML PR PRN (22:45)
[2019-10-31] MEDS ORDERED: IPRATROPIUM/ALBUTEROL 0.5-3(2.5)MG/3ML NEB HHN PRN (22:45)
[2019-10-31 23:42] LABS: CLARITY URINE CLEAR (CLEAR); COLOR URINE YELLOW (YELLOW); KETONES URINE NEGATIVE (NEGATIVE); LEUKOCYTE ESTERASE URINE NEGATIVE (NEGATIVE); NITRITE URINE NEGATIVE (NEGATIVE); OCCULT BLOOD URINE NEGATIVE (NEGATIVE); PH URINE 6.5 (4.5-8.0); PROTEIN URINE NEGATIVE (NEGATIVE); SPECIFIC GRAVITY URINE 1.003 (1.005-1.030); UROBILINOGEN URINE 0.2 E.U./dL (0.2-1.0)
[2019-11-01 05:22] LABS: BASOPHILS % 0.6 % (0.0-2.0); HEMATOCRIT. 38.9 % (36.0-48.0); LYMPHOCYTES % 11.8 % (20.0-50.0); MEAN CORPUSCULAR HEMOGLOBIN 30.9 pg (28.0-32.0); MEAN CORPUSCULAR VOLUME 92.5 fL (81.0-99.0); MEAN PLATELET VOLUME 7.6 fl (7.4-10.4); MONOCYTES % 3.9 % (2.0-8.0); NEUTROPHILS % 83.7 % (40.0-76.0); PLATELET 279 x1000/uL (130-400)
[2019-11-01 05:23] LABS: CHLORIDE 104 mEq/L (98-107)
[2019-11-01 05:30] LABS: LDL CHOLESTEROL 154 mg/dL (5-100)
[2019-11-01 05:32] LABS: HDL CHOLESTEROL 64 mg/dL (40-59)
[2019-11-01 05:35] LABS: CREATINE KINASE MB FRACTION 2.1 ng/mL (0.5-3.6)
[2019-11-01] MEDS: IPRATROPIUM/ALBUTEROL 0.5-3(2.5)MG/3ML NEB HHN SCH ×3 (07:48→23:57)
[2019-11-01] MEDS ORDERED: ENOXAPARIN 40MG/0.4ML SYR SUBCUT SCH (08:00)
[2019-11-01 08:30] VITALS: BP 103/82
[2019-11-01] MEDS ORDERED: IPRA4AER INH (10:05)
[2019-11-01] MEDS ORDERED: TRAM50TA3 MT (10:05)
[2019-11-01 12:00] VITALS: BP 139/83
[2019-11-01 12:34] LABS: *AMPHETAMINES SCREEN URINE NEGATIVE (NEGATIVE); *BARBITURATES SCREEN URINE NEGATIVE (NEGATIVE); *BENZODIAZEPINES SCREEN URINE NEGATIVE (NEGATIVE); *COCAINE SCREEN URINE NEGATIVE (NEGATIVE)
[2019-11-01 12:35] LABS: CANNABINOID URINE SCREEN NEGATIVE (NEGATIVE); METHADONE URINE SCREEN NEGATIVE (NEGATIVE); OPIATES URINE SCREEN NEGATIVE (NEGATIVE); PHENCYCLIDINE URINE SCREEN NEGATIVE (NEGATIVE)
[2019-11-01] MEDS ORDERED: INFLUENZA VACCINE IM ONE (13:45)
[2019-11-01 16:00] VITALS: BP_SYST 114; BP_SYST 146; BP_DIAS 70; BP_DIAS 77
[2019-11-01] MEDS ORDERED: BUDESONIDE 0.5MG/2ML NEB HHN SCH (16:00)
[2019-11-01] MEDS: NICOTINE 14MG PATCH TD SCH (16:14)
[2019-11-01] MEDS: SODIUM CHLORIDE 0.9% INJ 3ML FLUSH IVF SCH ×2 (16:14→22:29)
[2019-11-01] MEDS ORDERED: GUAIFENESIN-DM 200MG-20MG/10ML UDC PO PRN (17:15)
[2019-11-01 17:59] LABS: CREATINE KINASE MB FRACTION 2.5 ng/mL (0.5-3.6)
[2019-11-01] MEDS ORDERED: CEFTRIAXONE 1 G PREMIX 50 ML IV SCH (18:00)
[2019-11-01 20:00] VITALS: BP 141/71
[2019-11-01] MEDS: FLUTICASONE PROPIONATE 50MCG/SPRAY BOTTLE BOTHNSTRLS SCH (22:29)
[2019-11-02] VITALS (7 sets, daily range): BP systolic 97–138; BP diastolic 45–75
[2019-11-02] MEDS: HYDROCODONE/ACETAMINOPHEN 5/325MG TABLET PO PRN ×3 (01:44→17:27)
[2019-11-02] MEDS: SODIUM CHLORIDE 0.9% INJ 3ML FLUSH IVF SCH ×2 (05:13→14:00)
[2019-11-02] MEDS: NICOTINE 14MG PATCH TD SCH (08:34)
[2019-11-02] MEDS: APIXABAN 2.5 MG TABLET PO SCH ×2 (08:34→16:53)
[2019-11-02] MEDS: FLUTICASONE PROPIONATE 50MCG/SPRAY BOTTLE BOTHNSTRLS SCH (08:35)
[2019-11-02] MEDS ORDERED: P50 MT (14:14)
[2019-11-02] MEDS ORDERED: CEFTRIAXONE 1 G PREMIX 50 ML IV SCH (23:00)
== END 2019-11-02 18:00 | disposition home or self-care (01) | DRG 140 ==
LOC: ER 16:09 → EDBEDREQ 19:24 → ENRESERV 11-01 07:34 → 5WST 11-01 08:12
PROVIDERS: ADMIT Family Medicine; ATTEND Family Medicine
DX: J44.1 Chronic obstructive pulmonary disease with (acute) exacerbation (principal); J96.00 Acute respiratory failure, unspecified whether with hypoxia or hypercapnia; I48.91 Unspecified atrial fibrillation; E78.00 Pure hypercholesterolemia, unspecified; E78.5 Hyperlipidemia, unspecified; F17.210 Nicotine dependence, cigarettes, uncomplicated; I10 Essential (primary) hypertension; I25.10 Atherosclerotic heart disease of native coronary artery without angina pectoris; J06.9 Acute upper respiratory infection, unspecified; J98.11 Atelectasis; R79.89 Other specified abnormal findings of blood chemistry; K21.9 Gastro-esophageal reflux disease without esophagitis; Z86.73 Personal history of transient ischemic attack (TIA), and cerebral infarction without residual deficits; Z79.899 Other long term (current) drug therapy
CPT/HCPCS: 36415; 71045; 80053; 80061; 80305; 81003; 82550; 82553; 83605; 83880; 84484; 85025; 87804; 90686; 93005; 94640; 99285; J0456; J0696; J1650; J7060; J7512; J7626

== ENCOUNTER 2019-11-05 14:10 | Inpatient (IN) | payer MEDICARE, MEDICAID ==
[~2019-11-05] VITALS: Ht 154.9 cm; Wt 54.0 kg
[~2019-11-05 14:10] MED LIST changes: +P50 MT; +TRAM50TA3 MT
[2019-11-05] MEDS ORDERED: SODIUM CHLORIDE 0.9% 1000ML BAG (SEPSIS BOLUS) IV ONE (15:15)
[2019-11-05 15:50] LABS: HEMATOCRIT. 36.1 % (36.0-48.0); HEMOGLOBIN. 12.2 g/dL (12.0-16.0); MEAN CORPUSCULAR HEMOGLOBIN 31.3 pg (28.0-32.0); MEAN CORPUSCULAR VOLUME 92.8 fL (81.0-99.0); MEAN PLATELET VOLUME 9.1 fl (7.4-10.4); PLATELET 208 x1000/uL (130-400); RED BLOOD CELL COUNT 3.89 mill/uL (4.2-5.4)
[2019-11-05 15:56] LABS: CHLORIDE 100 mEq/L (98-107)
[2019-11-05 16:10] LABS: BETA HYDROXYBUTYRATE < 0.1 mMol/L (0.0-0.3)
[2019-11-05 16:31] LABS: PLATELET ESTIMATE NORMAL
[2019-11-05 19:07] LABS: CLARITY URINE CLEAR (CLEAR); COLOR URINE YELLOW (YELLOW); KETONES URINE NEGATIVE (NEGATIVE); LEUKOCYTE ESTERASE URINE NEGATIVE (NEGATIVE); NITRITE URINE NEGATIVE (NEGATIVE); OCCULT BLOOD URINE TRACE (NEGATIVE); PH URINE 6.5 (4.5-8.0); PROTEIN URINE NEGATIVE (NEGATIVE); SPECIFIC GRAVITY URINE 1.008 (1.005-1.030); UROBILINOGEN URINE 0.2 E.U./dL (0.2-1.0)
[2019-11-05 19:20] LABS: *BARBITURATES SCREEN URINE NEGATIVE (NEGATIVE); *BENZODIAZEPINES SCREEN URINE NEGATIVE (NEGATIVE)
[2019-11-05 19:21] LABS: *COCAINE SCREEN URINE NEGATIVE (NEGATIVE); CANNABINOID URINE SCREEN NEGATIVE (NEGATIVE); METHADONE URINE SCREEN NEGATIVE (NEGATIVE); OPIATES URINE SCREEN NEGATIVE (NEGATIVE); PHENCYCLIDINE URINE SCREEN NEGATIVE (NEGATIVE)
[2019-11-05 19:22] LABS: *AMPHETAMINES SCREEN URINE NEGATIVE (NEGATIVE)
[2019-11-05] MEDS ORDERED: FUROSEMIDE 20MG TABLET PO ONE (23:30)
[2019-11-06] MEDS ORDERED: MAGNESIUM/ALUMINUM HYDROXIDE/SIMETHICONE 30ML UDC PO PRN (02:45)
[2019-11-06] MEDS ORDERED: GUAIFENESIN 200MG/10ML SUGAR FREE UDC PO PRN (02:45)
[2019-11-06] MEDS ORDERED: ENOXAPARIN 40MG/0.4ML SYR SUBCUT SCH (02:45)
[2019-11-06] MEDS ORDERED: DIPHENHYDRAMINE 50MG/ML VIAL IV PRN (02:45)
[2019-11-06] MEDS ORDERED: IPRATROPIUM/ALBUTEROL 0.5-3(2.5)MG/3ML NEB HHN PRN (02:45)
[2019-11-06] MEDS ORDERED: IPRATROPIUM/ALBUTEROL 0.5-3(2.5)MG/3ML NEB HHN SCH (02:45)
[2019-11-06] MEDS ORDERED: ONDANSETRON HCL 4MG/2ML INJ IV PRN (02:45)
[2019-11-06] MEDS ORDERED: HYDROCODONE/ACETAMINOPHEN 5/325MG TABLET PO PRN (02:45)
[2019-11-06 08:50] VITALS: BP 142/64
[2019-11-06] MEDS ORDERED: FAMO20TA8 PO (09:50)
[2019-11-06] MEDS: APIXABAN 2.5 MG TABLET PO SCH ×2 (10:29→17:14)
[2019-11-06] MEDS: ASPIRIN 81MG EC TABLET PO SCH (10:29)
[2019-11-06] MEDS: LISINOPRIL 20MG TABLET PO SCH ×2 (10:29→21:00)
[2019-11-06 11:58] VITALS: BP 117/60
[2019-11-06] MEDS: SODIUM CHLORIDE 0.9% INJ 3ML FLUSH IVF SCH ×2 (12:49→21:21)
[2019-11-06 16:00] VITALS: BP 138/104
[2019-11-06] MEDS: IPRATROPIUM/ALBUTEROL 0.5-3(2.5)MG/3ML NEB HHN SCH ×2 (16:17→20:25)
[2019-11-06 20:00] VITALS: BP 104/56
[2019-11-06] MEDS: LORAZEPAM 0.5MG TABLET PO PRN (21:21)
[2019-11-06] MEDS: ACETAMINOPHEN 325MG TABLET PO PRN (22:17)
[2019-11-07] VITALS: BP 131/66
[2019-11-07] MEDS: IPRATROPIUM/ALBUTEROL 0.5-3(2.5)MG/3ML NEB HHN SCH ×4 (02:19→21:40)
[2019-11-07 04:00] VITALS: BP 143/72
[2019-11-07] MEDS: SODIUM CHLORIDE 0.9% INJ 3ML FLUSH IVF SCH ×3 (06:11→21:17)
[2019-11-07] MEDS: ACETAMINOPHEN 325MG TABLET PO PRN (06:32)
[2019-11-07 08:00] VITALS: BP 115/50
[2019-11-07] MEDS: ASPIRIN 81MG EC TABLET PO SCH (08:40)
[2019-11-07] MEDS: LISINOPRIL 20MG TABLET PO SCH ×2 (08:40→21:00)
[2019-11-07] MEDS: APIXABAN 2.5 MG TABLET PO SCH ×2 (08:40→16:51)
[2019-11-07 12:00] VITALS: BP 100/54
[2019-11-07] MEDS: DIGOXIN 500MCG/2ML AMP IV SCH ×2 (15:22→21:00)
[2019-11-07 16:00] VITALS: BP 100/54
[2019-11-07 20:00] VITALS: BP 121/64
[2019-11-07] MEDS: LORAZEPAM 0.5MG TABLET PO PRN (21:17)
[2019-11-08] VITALS (7 sets, daily range): BP systolic 102–161; BP diastolic 57–90
[2019-11-08] MEDS: IPRATROPIUM/ALBUTEROL 0.5-3(2.5)MG/3ML NEB HHN SCH ×3 (02:28→14:37)
[2019-11-08] MEDS: DIGOXIN 500MCG/2ML AMP IV SCH (03:18)
[2019-11-08 08:04] LABS: CHLORIDE 99 mEq/L (98-107)
[2019-11-08 08:06] LABS: HEMATOCRIT. 32.6 % (36.0-48.0); HEMOGLOBIN. 10.9 g/dL (12.0-16.0); MEAN CORPUSCULAR HEMOGLOBIN 31.1 pg (28.0-32.0); MEAN CORPUSCULAR VOLUME 92.4 fL (81.0-99.0); PLATELET 204 x1000/uL (130-400); RED BLOOD CELL COUNT 3.52 mill/uL (4.2-5.4); RED CELL DISTRIBUTION WIDTH 14.8 % (11.6-14.6)
[2019-11-08 08:11] LABS: PHOSPHORUS 3.3 mg/dL (2.5-4.9)
[2019-11-08] MEDS: LISINOPRIL 20MG TABLET PO SCH (08:56)
[2019-11-08] MEDS: APIXABAN 2.5 MG TABLET PO SCH ×2 (08:56→17:15)
[2019-11-08] MEDS: ASPIRIN 81MG EC TABLET PO SCH (08:56)
[2019-11-08 14:38] LABS: PLATELET ESTIMATE NORMAL
== END 2019-11-08 18:24 | disposition home or self-care (01) | DRG 201 ==
LOC: ER 14:10 → EDBEDREQ 23:07 → EDBEDREQTM 23:07 → ENRESERV 11-06 08:00 → 7WST 11-06 09:53
PROVIDERS: ADMIT Internal Medicine; ATTEND Internal Medicine
DX: I48.91 Unspecified atrial fibrillation (principal); J44.1 Chronic obstructive pulmonary disease with (acute) exacerbation; E44.1 Mild protein-calorie malnutrition; M19.90 Unspecified osteoarthritis, unspecified site; F17.200 Nicotine dependence, unspecified, uncomplicated; E78.00 Pure hypercholesterolemia, unspecified; K21.9 Gastro-esophageal reflux disease without esophagitis; G89.29 Other chronic pain; M54.5 Low back pain; I10 Essential (primary) hypertension; Z86.73 Personal history of transient ischemic attack (TIA), and cerebral infarction without residual deficits; Z68.22 Body mass index [BMI] 22.0-22.9, adult; Z88.2 Allergy status to sulfonamides; Z82.49 Family history of ischemic heart disease and other diseases of the circulatory system; Z88.0 Allergy status to penicillin; Z79.899 Other long term (current) drug therapy
CPT/HCPCS: 36415; 71045; 80048; 80053; 80305; 81003; 82010; 83605; 83735; 83880; 84100; 84145; 84484; 85025; 93005; 94640; 99285; J1160; J7030

== ENCOUNTER 2020-11-03 17:17 | Inpatient (IN) | payer MEDICARE, MEDICAID ==
[~2020-11-03] VITALS: Ht 154.9 cm; Wt 56.2 kg
[~2020-11-03 17:17] MED LIST changes: -ASPI-1497 PO; +DILT30TA38 PO; +FAMO20TA8 PO; +HYDR-4134 PO; +LEVO50TA8 PO; -LISI-604 PO; -METO25TA6 PO; -OMEP20CA14 PO; -P50 MT; -TRAM50TA3 MT
[2020-11-03 18:07] LABS: HEMOGLOBIN. 10.1 g/dL (12.0-16.0); MEAN CORPUSCULAR HEMOGLOBIN 31.7 pg (28.0-32.0); MEAN CORPUSCULAR VOLUME 94.1 fL (81.0-99.0); PLATELET 345 x1000/uL (130-400); RED BLOOD CELL COUNT 3.19 mill/uL (4.2-5.4); RED CELL DISTRIBUTION WIDTH 15.2 % (11.6-14.6)
[2020-11-03 18:14] LABS: CHLORIDE 100 mEq/L (98-107)
[2020-11-03 18:36] LABS: PLATELET ESTIMATE NORMAL
[2020-11-03] MEDS ORDERED: FUROSEMIDE 20MG/2ML VIAL IVP ONE (18:45)
[2020-11-03] MEDS ORDERED: DOCUSATE SODIUM 100MG CAPSULE PO PRN (19:00)
[2020-11-03] MEDS ORDERED: ACETAMINOPHEN 650MG/20.3ML UDC GT PRN ×2 (19:00)
[2020-11-03] MEDS ORDERED: ACETAMINOPHEN 650MG SUPP PR PRN ×2 (19:00)
[2020-11-03] MEDS ORDERED: CLONIDINE 0.1MG TABLET PO PRN (19:00)
[2020-11-03] MEDS ORDERED: DIPHENHYDRAMINE 50MG/ML VIAL IV PRN (19:00)
[2020-11-03] MEDS ORDERED: MAGNESIUM/ALUMINUM HYDROXIDE/SIMETHICONE 30ML UDC PO PRN (19:00)
[2020-11-03] MEDS ORDERED: ACETAMINOPHEN 325MG TABLET PO PRN (19:00)
[2020-11-03] MEDS ORDERED: GUAIFENESIN 200MG/10ML SUGAR FREE UDC PO PRN (19:00)
[2020-11-03] MEDS ORDERED: NA PHOS,M-B/NA PHOS,DI-BA ENEMA 118ML PR PRN (19:00)
[2020-11-03] MEDS ORDERED: ONDANSETRON HCL 4MG/2ML INJ IV PRN (19:00)
[2020-11-03 19:46] LABS: CLARITY URINE CLEAR (CLEAR); COLOR URINE YELLOW (YELLOW); KETONES URINE NEGATIVE (NEGATIVE); LEUKOCYTE ESTERASE URINE NEGATIVE (NEGATIVE); NITRITE URINE NEGATIVE (NEGATIVE); OCCULT BLOOD URINE NEGATIVE (NEGATIVE); PH URINE 7.5 (4.5-8.0); PROTEIN URINE NEGATIVE (NEGATIVE); SPECIFIC GRAVITY URINE 1.008 (1.005-1.030); UROBILINOGEN URINE 0.2 E.U./dL (0.2-1.0)
[2020-11-03 20:03] LABS: OPIATES URINE SCREEN NEGATIVE (NEGATIVE); PHENCYCLIDINE URINE SCREEN NEGATIVE (NEGATIVE)
[2020-11-03 20:05] LABS: *AMPHETAMINES SCREEN URINE NEGATIVE (NEGATIVE); *BARBITURATES SCREEN URINE NEGATIVE (NEGATIVE); *BENZODIAZEPINES SCREEN URINE NEGATIVE (NEGATIVE); *COCAINE SCREEN URINE NEGATIVE (NEGATIVE); CANNABINOID URINE SCREEN NEGATIVE (NEGATIVE); METHADONE URINE SCREEN NEGATIVE (NEGATIVE)
[2020-11-03] MEDS: ENOXAPARIN 40MG/0.4ML SYR SUBCUT SCH (20:49)
[2020-11-03 21:30] VITALS: BP 160/83
[2020-11-04] VITALS: BP 136/51
[2020-11-04 00:35] LABS: CREATINE KINASE MB FRACTION 4.4 ng/mL (0.5-3.6)
[2020-11-04 04:00] VITALS: BP 105/72
[2020-11-04 06:43] LABS: HEMATOCRIT. 29.9 % (36.0-48.0); HEMOGLOBIN. 10.1 g/dL (12.0-16.0); MEAN CORPUSCULAR HEMOGLOBIN 31.9 pg (28.0-32.0); MEAN CORPUSCULAR VOLUME 94.6 fL (81.0-99.0); MEAN PLATELET VOLUME 7.4 fl (7.4-10.4); PLATELET 381 x1000/uL (130-400); RED BLOOD CELL COUNT 3.16 mill/uL (4.2-5.4); RED CELL DISTRIBUTION WIDTH 15.5 % (11.6-14.6)
[2020-11-04 06:44] LABS: CHLORIDE 99 mEq/L (98-107)
[2020-11-04 06:54] LABS: LDL CHOLESTEROL 108 mg/dL (5-100)
[2020-11-04 06:55] LABS: CREATINE KINASE 254 IU/L (26-192)
[2020-11-04 06:56] LABS: HDL CHOLESTEROL 58 mg/dL (40-59)
[2020-11-04 06:58] LABS: CREATINE KINASE MB FRACTION 3.6 ng/mL (0.5-3.6)
[2020-11-04 08:00] VITALS: BP 161/93
[2020-11-04] MEDS: FUROSEMIDE 40MG/4ML VIAL IV SCH (10:04)
[2020-11-04] MEDS: DILTIAZEM HCL 30MG TABLET PO SCH ×3 (11:09→22:37)
[2020-11-04 12:00] VITALS: BP 118/88
[2020-11-04 16:00] VITALS: BP 99/62
[2020-11-04] MEDS ORDERED: HYDROCODONE/ACETAMINOPHEN 5/325MG TABLET PO NR (17:00)
[2020-11-04 20:00] VITALS: BP 153/79
[2020-11-04] MEDS: ENOXAPARIN 40MG/0.4ML SYR SUBCUT SCH (20:28)
[2020-11-04 20:42] LABS: PLATELET ESTIMATE NORMAL
[2020-11-05] VITALS: BP 156/73
[2020-11-05 04:00] VITALS: BP 148/78
[2020-11-05] MEDS: DILTIAZEM HCL 30MG TABLET PO SCH (06:16)
[2020-11-05 07:23] LABS: BASOPHILS % 1.4 % (0.0-2.0); EOSINOPHILS % 3.6 % (0.0-5.0); HEMATOCRIT. 28.9 % (36.0-48.0); HEMOGLOBIN. 9.9 g/dL (12.0-16.0); LYMPHOCYTES % 31.4 % (20.0-50.0); MEAN CORPUSCULAR VOLUME 93.6 fL (81.0-99.0); MEAN PLATELET VOLUME 7.1 fl (7.4-10.4); MONOCYTES % 14.2 % (2.0-8.0); NEUTROPHILS % 49.4 % (40.0-76.0); PLATELET 367 x1000/uL (130-400); RED BLOOD CELL COUNT 3.08 mill/uL (4.2-5.4); RED CELL DISTRIBUTION WIDTH 15.2 % (11.6-14.6)
[2020-11-05] MEDS: FUROSEMIDE 40MG/4ML VIAL IV SCH (09:45)
[2020-11-05 14:00] VITALS: BP 126/58
[2020-11-05] MEDS: DILTIAZEM HCL 60MG TABLET PO SCH ×2 (14:33→20:34)
[2020-11-05 16:00] VITALS: BP 112/52
[2020-11-05] MEDS: ACETAMINOPHEN 325MG TABLET PO PRN (16:58)
[2020-11-05] MEDS ORDERED: CEFTRIAXONE 1 G PREMIX 50 ML IV SCH (18:45)
[2020-11-05] MEDS ORDERED: HYDROCODONE/ACETAMINOPHEN 10/325MG TABLET PO PRN (18:45)
[2020-11-05] MEDS ORDERED: MORPHINE SULFATE 2 MG/ML CPJ (NOT FOR IM USE) IV PRN (19:00)
[2020-11-05 20:00] VITALS: BP 152/62
[2020-11-05] MEDS: METRONIDAZOLE 500 MG PREMIX 100 ML IV SCH (20:33)
[2020-11-05] MEDS: CEFTRIAXONE 1,000 MG in DEXTROSE 5% WATER 50 ML IV SCH (20:33)
[2020-11-05] MEDS: ENOXAPARIN 40MG/0.4ML SYR SUBCUT SCH (20:34)
[2020-11-06] VITALS: BP 148/56
[2020-11-06 04:00] VITALS: BP 150/63
[2020-11-06] MEDS: METRONIDAZOLE 500 MG PREMIX 100 ML IV SCH ×3 (04:15→19:53)
[2020-11-06] MEDS: DILTIAZEM HCL 60MG TABLET PO SCH ×3 (05:14→22:29)
[2020-11-06 07:56] LABS: BASOPHILS % 1.4 % (0.0-2.0); EOSINOPHILS % 3.4 % (0.0-5.0); HEMATOCRIT. 27.4 % (36.0-48.0); HEMOGLOBIN. 9.4 g/dL (12.0-16.0); LYMPHOCYTES % 28.6 % (20.0-50.0); MEAN CORPUSCULAR HEMOGLOBIN 32.4 pg (28.0-32.0); MEAN CORPUSCULAR VOLUME 94.2 fL (81.0-99.0); MEAN PLATELET VOLUME 7.2 fl (7.4-10.4); MONOCYTES % 13.2 % (2.0-8.0); NEUTROPHILS % 53.4 % (40.0-76.0); PLATELET 331 x1000/uL (130-400); RED BLOOD CELL COUNT 2.91 mill/uL (4.2-5.4); RED CELL DISTRIBUTION WIDTH 15.2 % (11.6-14.6)
[2020-11-06 08:00] VITALS: BP 152/71
[2020-11-06 08:21] LABS: CHLORIDE 94 mEq/L (98-107)
[2020-11-06] MEDS: FUROSEMIDE 40MG/4ML VIAL IV SCH (08:45)
[2020-11-06 12:00] VITALS: BP 161/77
[2020-11-06] MEDS: ACETAMINOPHEN 325MG TABLET PO PRN ×2 (19:03→23:47)
[2020-11-06 20:00] VITALS: BP 147/82
[2020-11-06] MEDS: ENOXAPARIN 40MG/0.4ML SYR SUBCUT SCH (20:35)
[2020-11-06] MEDS: AMLODIPINE 5MG TABLET PO SCH (20:35)
[2020-11-06] MEDS: CEFTRIAXONE 1,000 MG in DEXTROSE 5% WATER 50 ML IV SCH (20:36)
[2020-11-07] VITALS: BP 117/43
[2020-11-07] MEDS: METRONIDAZOLE 500 MG PREMIX 100 ML IV SCH ×2 (03:20→13:17)
[2020-11-07 04:00] VITALS: BP 114/53
[2020-11-07] MEDS: DILTIAZEM HCL 60MG TABLET PO SCH ×2 (06:50→13:20)
[2020-11-07 08:00] VITALS: BP 101/63
[2020-11-07] MEDS: AMLODIPINE 5MG TABLET PO SCH ×2 (08:54→20:40)
[2020-11-07] MEDS: FUROSEMIDE 40MG/4ML VIAL IV SCH (08:54)
[2020-11-07] MEDS: ENOXAPARIN 40MG/0.4ML SYR SUBCUT SCH ×2 (08:55→20:40)
[2020-11-07] MEDS ORDERED: DILT60TA35 PO (10:13)
[2020-11-07] MEDS ORDERED: AMLO5TAB88 PO (10:13)
[2020-11-07] MEDS ORDERED: METR500T MT (10:15)
[2020-11-07 11:28] LABS: BASOPHILS % 1.5 % (0.0-2.0); EOSINOPHILS % 0.8 % (0.0-5.0); HEMATOCRIT. 30.5 % (36.0-48.0); HEMOGLOBIN. 10.4 g/dL (12.0-16.0); LYMPHOCYTES % 11.6 % (20.0-50.0); MEAN CORPUSCULAR HEMOGLOBIN 31.9 pg (28.0-32.0); MEAN CORPUSCULAR VOLUME 93.7 fL (81.0-99.0); MEAN PLATELET VOLUME 6.9 fl (7.4-10.4); MONOCYTES % 7.5 % (2.0-8.0); NEUTROPHILS % 78.6 % (40.0-76.0); PLATELET 401 x1000/uL (130-400); RED BLOOD CELL COUNT 3.26 mill/uL (4.2-5.4)
[2020-11-07 12:13] LABS: CHLORIDE 92 mEq/L (98-107)
[2020-11-07 14:00] VITALS: BP 127/60
[2020-11-07 16:33] VITALS: BP 108/56
[2020-11-07] MEDS: METRONIDAZOLE 500MG TABLET PO SCH (19:33)
[2020-11-07] MEDS: CEFTRIAXONE 1,000 MG in DEXTROSE 5% WATER 50 ML IV SCH (20:41)
[2020-11-07 20:44] VITALS: BP 122/59
[2020-11-07] MEDS: DILTIAZEM HCL 30MG TABLET PO SCH (22:04)
[2020-11-08 00:05] VITALS: BP 130/51
[2020-11-08 04:56] VITALS: BP 124/54
[2020-11-08] MEDS: METRONIDAZOLE 500MG TABLET PO SCH ×2 (05:09→15:04)
[2020-11-08] MEDS: DILTIAZEM HCL 30MG TABLET PO SCH ×2 (05:10→15:05)
[2020-11-08 08:00] VITALS: BP 122/74
[2020-11-08] MEDS: AMLODIPINE 5MG TABLET PO SCH (09:51)
[2020-11-08] MEDS: ENOXAPARIN 40MG/0.4ML SYR SUBCUT SCH (09:51)
[2020-11-08] MEDS: FUROSEMIDE 40MG/4ML VIAL IV SCH (09:51)
[2020-11-08 13:22] VITALS: BP 120/74
== END 2020-11-08 15:25 | disposition home health service (06) | DRG 194 ==
LOC: ER 17:17 → 7EST 18:40 → ENRESERV 20:09 → 7EST 22:09 → 5WST 11-05 11:13
PROVIDERS: ADMIT Family Medicine; ATTEND Family Medicine
DX: I11.0 Hypertensive heart disease with heart failure (principal); I48.19 Other persistent atrial fibrillation; E78.00 Pure hypercholesterolemia, unspecified; I25.10 Atherosclerotic heart disease of native coronary artery without angina pectoris; I27.20 Pulmonary hypertension, unspecified; J44.9 Chronic obstructive pulmonary disease, unspecified; I44.7 Left bundle-branch block, unspecified; I50.21 Acute systolic (congestive) heart failure; Z20.822 Contact with and (suspected) exposure to COVID-19; M19.90 Unspecified osteoarthritis, unspecified site; R26.9 Unspecified abnormalities of gait and mobility; E44.0 Moderate protein-calorie malnutrition; I65.29 Occlusion and stenosis of unspecified carotid artery; D72.825 Bandemia; K57.92 Diverticulitis of intestine, part unspecified, without perforation or abscess without bleeding; Z88.0 Allergy status to penicillin; Z88.2 Allergy status to sulfonamides; Z79.899 Other long term (current) drug therapy; Z87.891 Personal history of nicotine dependence; Z86.73 Personal history of transient ischemic attack (TIA), and cerebral infarction without residual deficits; Z79.01 Long term (current) use of anticoagulants; Z88.9 Allergy status to unspecified drugs, medicaments and biological substances; Z68.23 Body mass index [BMI] 23.0-23.9, adult
CPT/HCPCS: 36415; 71045; 74176; 80048; 80053; 80061; 80305; 80307; 80329; 81003; 82140; 82550; 82553; 83605; 83880; 84443; 84484; 85025; 93005; 99285; C1893; J0696; J1650; J1940; J2270; J3490; J7040; J7060; U0003

== ENCOUNTER 2021-04-27 11:29 | Emergency (ER) | payer MEDICARE, MEDICAID ==
[~2021-04-27] VITALS: Ht 152.4 cm; Wt 51.0 kg
[~2021-04-27 11:29] MED LIST changes: +AMLO5TAB88 PO; +DILT60TA35 PO; +METR500T MT
[2021-04-27 12:56] LABS: BASOPHILS % 1.3 % (0.0-2.0); EOSINOPHILS % 1.5 % (0.0-5.0); HEMATOCRIT. 34.4 % (36.0-48.0); HEMOGLOBIN. 11.7 g/dL (12.0-16.0); LYMPHOCYTES % 25.1 % (20.0-50.0); MEAN CORPUSCULAR HEMOGLOBIN 29.8 pg (28.0-32.0); MEAN CORPUSCULAR VOLUME 87.7 fL (81.0-99.0); MEAN PLATELET VOLUME 6.6 fl (7.4-10.4); MONOCYTES % 10.4 % (2.0-8.0); NEUTROPHILS % 61.7 % (40.0-76.0); PLATELET 279 x1000/uL (130-400); RED BLOOD CELL COUNT 3.92 mill/uL (4.2-5.4); RED CELL DISTRIBUTION WIDTH 14.4 % (11.6-14.6)
[2021-04-27 13:03] LABS: CHLORIDE 103 mEq/L (98-107)
[2021-04-27] MEDS ORDERED: P50 MT (16:12)
[2021-04-27] MEDS ORDERED: PREDNISONE 20MG TABLET PO NR (16:30)
[2021-04-27 17:47] VITALS: BP 112/82
== END 2021-04-27 17:59 | disposition home or self-care (01) ==
LOC: ER 12:00
DX: J44.1 Chronic obstructive pulmonary disease with (acute) exacerbation (principal); I11.0 Hypertensive heart disease with heart failure; I50.9 Heart failure, unspecified; I48.91 Unspecified atrial fibrillation; J45.909 Unspecified asthma, uncomplicated; Z79.899 Other long term (current) drug therapy; Z88.2 Allergy status to sulfonamides; Z88.0 Allergy status to penicillin; Z20.822 Contact with and (suspected) exposure to COVID-19
CPT/HCPCS: 36415; 71045; 80053; 83880; 84484; 85025; 87426; 93005; 99285; J7512; Z7610